=== PATIENT | male | born 1950 | race Caucasian/White ===

== ENCOUNTER 2017-09-20 19:32 | Emergency (ER) | payer BC ==
[~2017-09-20] VITALS: Ht 167.6 cm; Wt 77.1 kg
--- OUTSIDE RECORDS SUMMARY | 2017-09-20 19:34 | XMS REPORT | Clinical Summary ---
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 Disp. Refills Start End Date Status Date olmesartan-hydrochlorothi Take by mouth. Active azide (BENICAR HCT) 40-25 mg per tablet atorvastatin (LIPITOR) 40 Take by mouth. Active MG tablet metoprolol (LOPRESSOR) 50 Take 50 mg by mouth 2 Active MG tablet (two) times daily. SITagliptin-metFORMIN Take 1 tablet by mouth 2 Active (JANUMET) 50-1,000 mg per (two) times daily with tablet breakfast and dinner. PHENYLPROPANOLAMINE-GG Take by mouth. Active (TRIMIXOL) 12.5-100 mg/5mL Soln CLOMIPHENE CITRATE Take by mouth. Active (CLOMID ORAL) sildenafil (VIAGRA) 100 Take 100 mg by mouth Active MG tablet daily as needed for Erectile Dysfunction. Active Problems Problem Noted Date S/P left inguinal hernia repair 10/28/2016 Left inguinal hernia 10/02/2016 Left testicular pain 10/02/2016 Encounters Date Type Specialty Care Team Description 10/28/2016 Office Visit General Surgery Isael Andujar, S/P left inguinal hernia MD repair (Primary Dx) 10/22/2016 Telephone General Surgery Isael Andujar, Post- Op Follow-up 10/17/2016 Telephone General Surgery Isael Andujar, medication MD 10/02/2016 Office Visit General Surgery Isael Andujar, Left inguinal hernia (Primary Dx);Left testicular pain after 09/19/2016 Social History Tobacco Use Types Packs/Day Years Used Date Former Smoker Alcohol Use Drinks/Week oz/Week Comments Yes Sex Assigned at Date Recorded Not on file Last Filed Vital Signs Vital Sign Reading Time Taken Blood Pressure 150/82 10/28/2016 4:08 PM CDT Pulse 68 10/28/2016 4:08 PM CDT Temperature 37.2 C (98.9 F) 10/28/2016 4:08 PM CDT Respiratory Rate - - Oxygen Saturation - - Inhaled Oxygen - - Concentration Weight 78 kg (172 lb) 10/28/2016 4:08 PM CDT Height 167.6 cm (5' 6") 10/02/2016 2:20 PM CDT Body Mass Index 27.76 10/28/2016 4:08 PM CDT Plan of Treatment Health Maintenance Due Date Last Done Comments INFLUENZA VACCINE 02/08/2018 Results Not on fileafter 09/19/2016
[2017-09-20 20:46] LABS: BASOPHILS # (AUTO) 0.1 (0.0-0.1); BASOPHILS % 0.3 % (0.0-1.0); EOSINOPHILS # (AUTO) 0.1 (0.0-0.4); EOSINOPHILS % 0.8 % (0.0-6.0); HEMATOCRIT 43.8 % (38.2-49.6); LYMPHOCYTES # (AUTO) 2.7 (1.0-3.2); LYMPHOCYTES % 17.1 % (18.0-39.1); MEAN CORPUSCULAR HEMOGLOBIN 31.2 pg (28-32); MEAN CORPUSCULAR HGB CONC 34.2 g/dL (31-35); MEAN CORPUSCULAR VOLUME 91.1 fL (81-99); MONOCYTES # (AUTO) 1.2 (0.2-0.8); MONOCYTES % 7.6 % (4.4-11.3); NEUTROPHILS # (AUTO) 11.5 (2.1-6.9); NEUTROPHILS % 73.6 % (38.7-80.0); PLATELET COUNT 361 x10e3/uL (140-360); RED BLOOD COUNT 4.81 x10e6/uL (4.3-5.7); RED CELL DISTRIBUTION WIDTH 13.2 % (11.7-14.4)
[2017-09-20 20:58] LABS: INR 0.96
[2017-09-20 20:59] LABS: PARTIAL THROMBOPLASTIN TIME 28.1 seconds (23.8-35.5)
[2017-09-20 21:08] LABS: ALBUMIN 3.6 g/dL (3.5-5.0); ANION GAP 13.6 mmol/L (8-16); CALCIUM 9.5 mg/dL (8.4-10.2); CREATININE, SERUM 1.32 mg/dL (0.72-1.25); POTASSIUM 3.6 mmol/L (3.5-5.1)
== END 2017-09-20 21:30 | disposition home or self-care (01) ==
LOC: ER 19:32
DX: N48.30 Priapism, unspecified (principal); I10 Essential (primary) hypertension; E11.9 Type 2 diabetes mellitus without complications
CPT/HCPCS: 36415; 80053; 85025; 85610; 85730; 99283